=== PATIENT | male | born 1970 | race African-American/Black ===

== ENCOUNTER 2023-06-05 00:10 | Emergency (ER) | payer MEDICAID ==
[~2023-06-05] VITALS: Ht 170.2 cm; Wt 99.0 kg
[2023-06-05 00:16] VITALS: BP 154/82; PULSE 86; RESP 16; TEMP 98.3; O2SAT 97
[2023-06-05] MEDS ORDERED: SODIUM CHLORIDE 0.9% 1,000 ML IV ONE (01:00)
== END 2023-06-05 01:17 | disposition home or self-care (01) ==
LOC: EDBD 00:10 → ER 00:10
DX: R41.82 Altered mental status, unspecified (principal); I49.9 Cardiac arrhythmia, unspecified; Z98.890 Other specified postprocedural states
CPT/HCPCS: 93005; 99283; J7030; Z7610

== ENCOUNTER 2023-08-26 11:49 | Emergency (ER) | payer MEDICAID ==
[~2023-08-26] VITALS: Ht 177.8 cm; Wt 86.0 kg
[2023-08-26 11:51] VITALS: O2SAT 97
[2023-08-26] MEDS: NALOXONE HCL 0.4MG/ML 1ML VIAL IV PRN (12:35)
[2023-08-26] MEDS: SODIUM CHLORIDE 0.9% 1,000 ML IV ONE (12:35)
[2023-08-26 12:48] LABS: CHLORIDE 108 mEq/L (98-107); POTASSIUM 3.7 mEq/L (3.5-5.1); SODIUM 138 mEq/L (136-145)
[2023-08-26 12:49] LABS: BASOPHILS % 0.3 % (0.0-2.0); CALCIUM 8.9 mg/dL (8.7-10.4); CARBON DIOXIDE 21 mEq/L (21-32); DIFFERENTIAL COMMENT 0; EOSINOPHILS % 1.7 % (0.0-5.0); HEMOGLOBIN. 11.7 g/dL (14.0-18.0); LYMPHOCYTES % 38.8 % (20.0-50.0); MEAN CORPUSCULAR HEMOGLOBIN 24.6 pg (28.0-32.0); MEAN CORPUSCULAR HGB CONC 31.6 g/dL (31.0-37.0); MEAN CORPUSCULAR VOLUME 77.8 fL (80.0-94.0); MEAN PLATELET VOLUME 8.8 fl (7.4-10.4); MONOCYTES % 7.7 % (2.0-8.0); NEUTROPHILS % 51.5 % (40.0-76.0); PLATELET 218 x1000/uL (130-400); RED BLOOD CELL COUNT 4.75 mill/uL (4.7-6.1); RED CELL DISTRIBUTION WIDTH 14.2 % (11.6-14.6); WHITE BLOOD COUNT 6.6 x1000/uL (4.5-11.0)
[2023-08-26 12:54] LABS: GLUCOSE 115 mg/dL (70-105); UREA NITROGEN BLOOD 15 mg/dL (9-23)
[2023-08-26 12:55] LABS: ETHANOL BLOOD 300 mg/dL (<10); LACTIC ACID 2.1 mmol/L (0.4-2.0); TROPONIN I HIGH SENSITIVITY 22 ng/L (3.0-53)
[2023-08-26 12:56] LABS: ALANINE AMINOTRANSFERASE 18 IU/L (10-49); ALBUMIN 3.8 g/dL (3.2-4.8); ASPARTATE AMINOTRANSFERASE 18 IU/L (<34); CREATINE KINASE 122 IU/L (46-171)
[2023-08-26 12:57] LABS: BILIRUBIN TOTAL 0.4 mg/dL (0.1-1.0); PROTEIN TOTAL 6.3 g/dL (6.0-8.3)
[2023-08-26 12:59] LABS: AMMONIA < 17 uMol/L (<32)
[2023-08-26 13:04] LABS: BILIRUBIN DIRECT < 0.1 mg/dL (<=3.0)
[2023-08-26 13:50] VITALS: BP 112/60; PULSE 63; RESP 14; TEMP 98.5
[2023-08-26] MEDS: DIPHENHYDRAMINE 50MG/ML VIAL IV NR (14:45)
[2023-08-26 16:07] LABS: TROPONIN I HIGH SENSITIVITY 25 ng/L (3.0-53)
[2023-08-26] MEDS ORDERED: NA PHOS,M-B/NA PHOS,DI-BA ENEMA 118ML PR PRN (17:15)
[2023-08-26] MEDS ORDERED: GUAIFENESIN 200MG/10ML SUGAR FREE UDC PO PRN (17:15)
[2023-08-26] MEDS ORDERED: ACETAMINOPHEN 325MG TABLET PO PRN ×2 (17:15)
[2023-08-26] MEDS ORDERED: IPRATROPIUM/ALBUTEROL 0.5-3(2.5)MG/3ML NEB HHN PRN (17:15)
[2023-08-26] MEDS ORDERED: MAGNESIUM/ALUMINUM HYDROXIDE/SIMETHICONE 30ML UDC PO PRN (17:15)
[2023-08-26] MEDS ORDERED: ONDANSETRON HCL 4MG/2ML INJ IV PRN (17:15)
[2023-08-26] MEDS ORDERED: CLONIDINE 0.1MG TABLET PO PRN (17:15)
[2023-08-26] MEDS ORDERED: DOCUSATE SODIUM 100MG CAPSULE PO PRN (17:15)
[2023-08-26] MEDS ORDERED: MVI, ADULT NO.1 10 ML, FOLIC ACID 1 MG, THIAMINE HCL 100 MG in SODIUM CHLORIDE 0.9% 1,0... IV SCH (18:30)
== END 2023-08-26 17:19 | disposition left against medical advice (07) ==
LOC: ER 11:49 → EDBEDREQTM 13:39 → EDBEDREQ 13:39 → ER 17:19
DX: R41.82 Altered mental status, unspecified (principal); E11.9 Type 2 diabetes mellitus without complications
CPT/HCPCS: 80076; 80048; 80320; 82140; 82550; 82962; 83605; 83690; 85025; 84484; 36415; 70450; 93005; 96374; 96375; 99285; J1200; J3490 ×2; J2310; J3411; J7030; Z7610; G0480

== ENCOUNTER 2024-02-15 16:08 | Emergency (ER) | payer MEDICAID ==
[~2024-02-15] VITALS: Ht 177.8 cm; Wt 90.0 kg
[2024-02-15 16:10] VITALS: BP 198/110; PULSE 79; RESP 16; TEMP 98.6; O2SAT 98
== END 2024-02-15 16:24 | disposition left against medical advice (07) ==
LOC: ER 16:08
DX: R41.82 Altered mental status, unspecified (principal); E11.9 Type 2 diabetes mellitus without complications; I10 Essential (primary) hypertension; Z98.890 Other specified postprocedural states
CPT/HCPCS: 99283

== ENCOUNTER 2024-07-29 22:10 | Inpatient (IN) | payer MEDICAID ==
[~2024-07-29] VITALS: Ht 170.2 cm; Wt 83.5 kg
[2024-07-29 23:40] LABS: CHLORIDE 104 mEq/L (98-107); POTASSIUM 4.9 mEq/L (3.5-5.1); SODIUM 135 mEq/L (136-145)
[2024-07-29 23:41] LABS: CALCIUM 8.9 mg/dL (8.7-10.4); CARBON DIOXIDE 21 mEq/L (21-32)
[2024-07-29 23:46] LABS: CREATININE 1.1 mg/dL (0.6-1.3); UREA NITROGEN BLOOD 19 mg/dL (9-23)
[2024-07-29 23:47] LABS: ETHANOL BLOOD 170 mg/dL (<10)
[2024-07-29 23:48] LABS: TROPONIN I HIGH SENSITIVITY 36 ng/L (3.0-53)
[2024-07-30 00:14] LABS: GLUCOSE 337 mg/dL (70-105)
[2024-07-30 00:31] LABS: BASOPHILS % 0.5 % (0.0-2.0); DIFFERENTIAL COMMENT 0; EOSINOPHILS % 3.3 % (0.0-5.0); HEMOGLOBIN. 12.3 g/dL (14.0-18.0); LYMPHOCYTES % 23.9 % (20.0-50.0); MEAN CORPUSCULAR HEMOGLOBIN 24.2 pg (28.0-32.0); MEAN CORPUSCULAR HGB CONC 31.6 g/dL (31.0-37.0); MEAN CORPUSCULAR VOLUME 76.5 fL (80.0-94.0); MONOCYTES % 7.1 % (2.0-8.0); NEUTROPHILS % 65.2 % (40.0-76.0); PLATELET 163 x1000/uL (130-400); RED CELL DISTRIBUTION WIDTH 13.7 % (11.6-14.6)
[2024-07-30 00:38] LABS: PARTIAL THROMBOPLASTIN TIME 25.1 sec (23.4-31.0); PROTHROMBIN TIME 10.6 sec (9.6-11.0)
[2024-07-30] MEDS ORDERED: GUAIFENESIN 200MG/10ML SUGAR FREE UDC PO PRN (04:30)
[2024-07-30] MEDS ORDERED: IPRATROPIUM/ALBUTEROL 0.5-3(2.5)MG/3ML NEB HHN PRN (04:30)
[2024-07-30] MEDS ORDERED: MAGNESIUM/ALUMINUM HYDROXIDE/SIMETHICONE 30ML UDC PO PRN (04:30)
[2024-07-30] MEDS ORDERED: ONDANSETRON HCL 4MG/2ML INJ IV PRN (04:30)
[2024-07-30] MEDS ORDERED: ACETAMINOPHEN 325MG TABLET PO PRN ×2 (04:30)
[2024-07-30] MEDS ORDERED: DOCUSATE SODIUM 100MG CAPSULE PO PRN (04:30)
[2024-07-30] MEDS ORDERED: CLONIDINE 0.1MG TABLET PO PRN (04:30)
[2024-07-30] MEDS: FUROSEMIDE 20MG/2ML VIAL IVP NR (04:38)
[2024-07-30] MEDS: ASPIRIN 325MG EC TABLET PO NR (04:39)
[2024-07-30 05:00] VITALS: BP 167/94; PULSE 80; RESP 20; TEMP 36.5; O2SAT 97
[2024-07-30] MEDS ORDERED: LORAZEPAM 2MG/ML UD SYRINGE IV PRN (05:00)
[2024-07-30] MEDS: BLOOD SUGAR DIAGNOSTIC STRIP TEST SCH (06:06)
[2024-07-30] MEDS: INSULIN REGULAR (HUMULIN R) 1000UNITS/10ML VIAL IV NR (06:32)
[2024-07-30] MEDS ORDERED: INS7030 SUBCUT (07:14)
[2024-07-30 07:45] LABS: CLARITY URINE CLEAR (CLEAR); COLOR URINE YELLOW (YELLOW); GLUCOSE URINE 3+ (NEGATIVE); KETONES URINE NEGATIVE (NEGATIVE); LEUKOCYTE ESTERASE URINE NEGATIVE (NEGATIVE); NITRITE URINE NEGATIVE (NEGATIVE); OCCULT BLOOD URINE NEGATIVE (NEGATIVE); PH URINE 5.5 (4.5-8.0); PROTEIN URINE NEGATIVE (NEGATIVE); SPECIFIC GRAVITY URINE 1.009 (1.005-1.030); UROBILINOGEN URINE 0.2 E.U./dL (0.2-1.0)
[2024-07-30 08:00] VITALS: BP 134/78; PULSE 68; RESP 18; TEMP 35.6; O2SAT 95
[2024-07-30 08:09] LABS: *BARBITURATES SCREEN URINE NEGATIVE (NEGATIVE)
[2024-07-30 08:10] LABS: *BENZODIAZEPINES SCREEN URINE NEGATIVE (NEGATIVE); *COCAINE SCREEN URINE NEGATIVE (NEGATIVE); CANNABINOID URINE SCREEN NEGATIVE (NEGATIVE); ECSTASY MDMA SCREEN URINE NEGATIVE (NEGATIVE); METHADONE URINE SCREEN NEGATIVE (NEGATIVE); OPIATES URINE SCREEN NEGATIVE (NEGATIVE); PHENCYCLIDINE URINE SCREEN PRESUMTIVE POSITIVE (NEGATIVE)
[2024-07-30] MEDS: PANTOPRAZOLE SODIUM 40 MG/VIAL IV SCH (08:14)
[2024-07-30] MEDS: FOLIC ACID 1MG TABLET PO SCH (08:15)
[2024-07-30] MEDS: THIAMINE HCL 100MG TABLET PO SCH (08:15)
[2024-07-30 08:17] LABS: SQUAMOUS EPITHELIAL CELL URINE RARE /lpf (RARE/1+)
[2024-07-30 08:18] LABS: RBC URINE 0-2 /hpf (0-2)
[2024-07-30] MEDS: INSULIN LISPRO 100 UNITS/ML SUBCUT SCH (08:18)
[2024-07-30 08:19] LABS: BACTERIA URINE NONE SEEN; WBC URINE NONE SEEN /hpf (0-2)
[2024-07-30 08:20] LABS: *AMPHETAMINES SCREEN URINE NEGATIVE (NEGATIVE)
[2024-07-30] MEDS: MVI, ADULT NO.1 10 ML, FOLIC ACID 1 MG, THIAMINE HCL 100 MG in SODIUM CHLORIDE 0.9% 1,0... IV SCH (09:01)
[2024-07-30 10:24] LABS: TROPONIN I HIGH SENSITIVITY 37 ng/L (3.0-53)
[2024-07-30 10:25] LABS: CREATINE KINASE 208 IU/L (46-171); PHOSPHORUS 4.4 mg/dL (2.5-4.9)
[2024-07-30] MEDS: DEXTROSE 50% WATER 50ML SYRINGE IV PRN (11:45)
[2024-07-30 11:57] VITALS: BP 93/44; PULSE 71; RESP 18; TEMP 35.7; O2SAT 96
[2024-07-30] MEDS ORDERED: LORAZEPAM 1MG TABLET PO PRN (13:30)
[2024-07-30 16:00] VITALS: BP 105/52; PULSE 80; RESP 18; TEMP 36.6; O2SAT 97
[2024-07-30 16:13] LABS: TROPONIN I HIGH SENSITIVITY 32 ng/L (3.0-53)
[2024-07-30 16:14] LABS: CREATINE KINASE 150 IU/L (46-171)
[2024-07-30] MEDS ORDERED: SUCRALFATE 1G TABLET PO SCH (17:40)
[2024-07-30 20:00] VITALS: BP 102/48; PULSE 89; RESP 18; TEMP 36.3; O2SAT 97
[2024-07-30] MEDS: INSULIN GLARGINE 100 UNITS/ML SUBCUT SCH (21:26)
[2024-07-31] VITALS: BP 133/80; PULSE 85; RESP 20; TEMP 37; O2SAT 96
[2024-07-31 04:00] VITALS: BP 142/81; PULSE 76; RESP 20; TEMP 36.9; O2SAT 98
[2024-07-31 07:45] LABS: CHLORIDE 108 mEq/L (98-107); POTASSIUM 4.1 mEq/L (3.5-5.1); SODIUM 141 mEq/L (136-145)
[2024-07-31 07:46] LABS: CARBON DIOXIDE 27 mEq/L (21-32)
[2024-07-31 07:51] LABS: CREATININE 1.1 mg/dL (0.6-1.3); TRIGLYCERIDE 73 mg/dL (0-150); UREA NITROGEN BLOOD 20 mg/dL (9-23)
[2024-07-31 07:52] LABS: LDL CHOLESTEROL 78 mg/dL (5-100)
[2024-07-31 07:53] LABS: ALANINE AMINOTRANSFERASE 12 IU/L (10-49); ALBUMIN 3.6 g/dL (3.2-4.8); ASPARTATE AMINOTRANSFERASE 16 IU/L (<34); BASOPHILS % 0.3 % (0.0-2.0); BILIRUBIN DIRECT 0.2 mg/dL (<=3.0); BILIRUBIN TOTAL 0.7 mg/dL (0.1-1.0); CHOLESTEROL 185 mg/dL (<200); DIFFERENTIAL COMMENT 0; EOSINOPHILS % 2.7 % (0.0-5.0); HDL CHOLESTEROL 81 mg/dL (>55); HEMATOCRIT. 40.2 % (42.0-52.0); HEMOGLOBIN. 12.7 g/dL (14.0-18.0); LYMPHOCYTES % 33.5 % (20.0-50.0); MEAN CORPUSCULAR HGB CONC 31.7 g/dL (31.0-37.0); MEAN CORPUSCULAR VOLUME 75.8 fL (80.0-94.0); MEAN PLATELET VOLUME 10.3 fl (7.4-10.4); MONOCYTES % 9.9 % (2.0-8.0); NEUTROPHILS % 53.6 % (40.0-76.0); PLATELET 157 x1000/uL (130-400); PROTEIN TOTAL 6.1 g/dL (6.0-8.3); RED BLOOD CELL COUNT 5.31 mill/uL (4.7-6.1); RED CELL DISTRIBUTION WIDTH 13.5 % (11.6-14.6); WHITE BLOOD COUNT 5.8 x1000/uL (4.5-11.0)
[2024-07-31 07:55] LABS: GLUCOSE 55 mg/dL (70-105)
[2024-07-31 08:00] VITALS: BP 125/85; PULSE 85; RESP 18; TEMP 36.8; O2SAT 96
[2024-07-31 12:00] VITALS: BP 147/93; PULSE 78; RESP 20; TEMP 36.6; O2SAT 100
[2024-07-31 16:00] VITALS: BP 129/90; PULSE 74; RESP 18; TEMP 36.3; O2SAT 100
[2024-07-31 20:00] VITALS: BP 127/65; PULSE 87; RESP 18; TEMP 36.8; O2SAT 99
[2024-08-01] VITALS: BP 134/76; PULSE 89; RESP 19; TEMP 37.1; O2SAT 98
[2024-08-01 04:00] VITALS: BP 107/63; PULSE 75; RESP 18; TEMP 36.7; O2SAT 100
[2024-08-01 08:00] VITALS: BP 132/83; PULSE 71; RESP 18; TEMP 36.6; O2SAT 99
[2024-08-01] MEDS ORDERED: INS7030 SUBCUT (08:36)
[2024-08-01 09:10] VITALS: BP 132/83; PULSE 71; TEMP 97.8; O2SAT 99
== END 2024-08-01 10:54 | disposition home or self-care (01) | DRG 812 ==
LOC: ER 22:19 → EDBEDREQ 22:47 → 7WST 07-30 03:22 → EDBEDREQ 07-30 03:24 → ENRESERV 07-30 03:36 → 8EST 07-31 09:43
PROVIDERS: ADMIT Internal Medicine; ATTEND Internal Medicine
DX: T50.911A Poisoning by multiple unspecified drugs, medicaments and biological substances, accidental (unintentional), initial encounter (principal); G92.8 Other toxic encephalopathy; G31.2 Degeneration of nervous system due to alcohol; I42.7 Cardiomyopathy due to drug and external agent; I50.9 Heart failure, unspecified; I11.0 Hypertensive heart disease with heart failure; F10.129 Alcohol abuse with intoxication, unspecified; F19.10 Other psychoactive substance abuse, uncomplicated; I87.2 Venous insufficiency (chronic) (peripheral); F10.139 Alcohol abuse with withdrawal, unspecified; K59.00 Constipation, unspecified; E11.65 Type 2 diabetes mellitus with hyperglycemia; Z59.00 Homelessness unspecified; Z79.4 Long term (current) use of insulin; Z79.899 Other long term (current) drug therapy; Y92.89 Other specified places as the place of occurrence of the external cause; Y90.6 Blood alcohol level of 120-199 mg/100 ml
CPT/HCPCS: 36415; 71045; 80048; 80061; 80076; 80305; 80320; 81003; 82550; 82962; 83036; 83735; 83880; 84100; 84484; 85025; 93005; 99285; J1815; J1940; J2470; J3411; J3490; J7030; G0480